=== PATIENT | male | born 1965 | race Caucasian/White ===

== ENCOUNTER → 2017-03-22 | Outpatient (CLI) | payer SELFPAY ==
[~2017-03-22] VITALS: Ht 180.3 cm; Wt 89.1 kg
[2017-03-22] VITALS (10 sets, daily range): BP systolic 144–161; BP diastolic 86–96; PULSE 69–80; TEMP 97.9–98.4
[~2017-03-22] MED LIST: ASPIRIN E.C. 8181 MG PO; NATURAL IRON65 MG PO; NO HOME MEDICATIONS
== END ==
LOC: EUO 09:35
DX: K92.2 Gastrointestinal hemorrhage, unspecified (principal)
CPT/HCPCS: P9016

== ENCOUNTER → 2017-03-31 | Outpatient (CLI) | payer SELFPAY | LOC: COL.RAD 10:20 | DX: D50.0 Iron deficiency anemia secondary to blood loss (chronic) (principal); K26.9 Duodenal ulcer, unspecified as acute or chronic, without hemorrhage or perforation; K57.10 Diverticulosis of small intestine without perforation or abscess without bleeding; R11.10 Vomiting, unspecified ==

== ENCOUNTER → 2019-12-08 | Outpatient (CLI) | payer SELFPAY | LOC: COL.RAD 10:45 | DX: K81.9 Cholecystitis, unspecified (principal); K76.0 Fatty (change of) liver, not elsewhere classified ==

== ENCOUNTER 2019-12-20 07:50 | Day surgery (SDC) | payer SELFPAY ==
[~2019-12-20] VITALS: Ht 180.3 cm; Wt 90.5 kg
[2019-12-20 08:22] VITALS: BP 166/99; PULSE 77; TEMP 97.5
[2019-12-20] MEDS ORDERED: NORCO 325 MG-51 TAB PO (10:28)
[2019-12-20 11:20] VITALS: BP 157/96; PULSE 12; TEMP 97.6
--- NOTE | 2019-12-20 11:22 | NUR ---
PATIENT TRANSPORTED PER CART TO BAY 2 ACCOMPANIED BY PACU STAFF. MONITORS APPLIED. BLOOD PRESSURE WITHIN RANGE OF ADMISSIONS. PATIENT STATES DISCOMFORT IS A 3/10 AND TOLERABLE. VERBAL REPORT RECEIVED. PATIENT ON ROOM AIR. 1128 PATIENT GIVEN WATER TO DRINK.
[2019-12-20 11:30] VITALS: BP 156/96; PULSE 70
--- NOTE | 2019-12-20 11:33 | NUR ---
VSS. PATIENT DRINKING WATER WITHOUT PROBLEMS. PATIENT GIVEN APPLESAUCE TO EAT. DENIES INCREASING DISCOMFORT AND NAUSEA.
[2019-12-20 11:45] VITALS: BP 164/97; PULSE 69
--- NOTE | 2019-12-20 11:47 | NUR ---
VSS. BLOOD PRESSURE ON ADMISSION. PATIENT EATS APPLESAUCE WITHOUT PROBLEMS. PATIENT STATES DISCOMFORT IS LESS.
[2019-12-20 12:03] VITALS: BP 150/87; PULSE 70
--- NOTE | 2019-12-20 12:05 | NUR ---
PATIENT'S BLOOD PRESSURE IN RIGHT ARM WAS 161/101. RECHECKED IN LEFT ARM WAS 150/87. OTHER VITAL SIGNS WNL. PATIENT DENIES DISCOMFORT.
[2019-12-20 12:20] VITALS: BP 161/90; PULSE 70
--- NOTE | 2019-12-20 12:20 | NUR ---
VSS. 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 DISCHARGE INSTRUCTIONS GIVEN VERBAL AND WRITTEN. DISCHARGE PACKET WITH RX GIVEN TO PATIENT. QUESTIONS ANSWERED AND PATIENT VOICED UNDERSTANDING. DISCUSSED TAKING PAIN MEDICATION AND PATIENT VOICED UNDERSTANDING. IV SITE DC'D CATHETER TIP INTACT AND PRESSURE APPLIED. 1235 DISCHARGED PER WHEEL CHAIR TO [facility]. SISTER WAS DRIVING.
== END 2019-12-20 12:35 | disposition home or self-care (01) ==
LOC: SDCO 07:50
DX: K80.10 Calculus of gallbladder with chronic cholecystitis without obstruction (principal)
CPT/HCPCS: J0330; J0360; J0690; J1100; J1885; J2405; J2704; J3010; J7120; Q9967